=== PATIENT | male | born 1995 | race African-American/Black ===

== ENCOUNTER 2024-10-27 14:11 | Emergency (ER) | payer OTHER ==
[2024-10-27 15:10] VITALS: BP 119/76; PULSE 78; RESP 20; TEMP 98.4; BMI 22.7
[2024-10-27] MEDS ORDERED: ACETAMINOPHEN INJECTION 100 ML ONE (15:55)
[2024-10-27 16:13] LABS: ABSOLUTE IMMATURE GRANULOCYTES 0.01 x10^3/uL (0.0-0.031); BASOPHILS # 0.04 x10^3/uL (0.01-0.08); EOSINOPHIL % 3.3 % (0.8-7.0); EOSINOPHILS # 0.15 x10^3/uL (0.04-0.54); MCHC 32.1 g/dl (32.3-36.5); MEAN CELL VOLUME 81.4 fl (79.0-92.2); MEAN PLT VOLUME 12.5 fl (9.4-12.4); MONOCYTE # 0.41 x10^3/uL (0.30-0.82); MONOCYTE % 9.1 % (5.3-12.2); RDW 13.5 % (11.9-15.3)
[2024-10-27 16:32] LABS: ALK PHOS 49.0 U/L (45-117); CO2 30.0 mmol/L (21-32); CREATININE 1.2 mg/dl (0.6-1.3); GLUCOSE,RANDOM 103.0 mg/dl (74-106); SGOT/AST 17.0 U/L (15-37); SGPT/ALT 11.0 U/L (7-52); TOT PROT 7.4 g/dl (6.4-8.2)
[2024-10-27] MEDS: SODIUM CHLORIDE 0.9% 1000 ML INFUS.BAG IV ONE (16:34)
[2024-10-27] MEDS: ACETAMINOPHEN 1000 MG/100 ML BAG IVPB ONE (16:34)
[2024-10-27] MEDS: CEFTRIAXONE 500 MG in DEXTROSE 5%-WATER - 50 ML IVPB ONE (17:59)
[2024-10-28 00:55] LABS: HIV INTERPRETATION NEGATIVE (NEGATIVE)
[2024-10-28 00:58] LABS: HCV DIAGNOSTIC IN-HOUSE W/RFLX NON-REACTIVE (NONREACTIVE)
== END 2024-10-27 18:35 | disposition home or self-care (01) ==
LOC: FER 14:11
PROC: 3E03329 Introduction of Other Anti-infective into Peripheral Vein, Percutaneous Approach (ICD-10-PCS; principal; 2024-10-27)
PROC: 3E033NZ Introduction of Analgesics, Hypnotics, Sedatives into Peripheral Vein, Percutaneous Approach (ICD-10-PCS; 2024-10-27)
DX: A64 Unspecified sexually transmitted disease (principal); R36.9 Urethral discharge, unspecified; R51.9 Headache, unspecified; R10.32 Left lower quadrant pain
CPT/HCPCS: 36415; 74176-TC; 74177-TC; 80053; 81003; 85025; 86803; 87086; 87389; 87491; 87591; 99285-25; Q9967